=== PATIENT | male | born 1995 | race Caucasian/White ===

== ENCOUNTER 2018-08-22 15:03 | Emergency (ER) | payer OTHER ==
[~2018-08-22] VITALS: Ht 182.9 cm; Wt 68.0 kg
[2018-08-22 15:10] VITALS: BP 138/82
[2018-08-22] MEDS ORDERED: KEFLEX500 M1 PO (15:16)
== END 2018-08-22 15:26 | disposition home or self-care (01) ==
LOC: M.ERS 15:03
DX: J02.0 Streptococcal pharyngitis (principal)